=== PATIENT | female | born 1980 | race Caucasian/White ===

== ENCOUNTER 2018-09-15 12:05 | Emergency (ER) | payer OTHER ==
[~2018-09-15] VITALS: Ht 170.2 cm; Wt 83.9 kg
[2018-09-15 12:05] VITALS: BP_SYST 102
--- NOTE | 2018-09-15 12:40 | NUR ---
BROUGHT BACK TO BED #5 AND REPORT GIVEN TO BELEN
--- NOTE | 2018-09-15 12:57 | NUR ---
AMMY Burks at bedside examining patient.
[2018-09-15] MEDS: traMADol HCL HCL 50 MG TABLET (ULTRAM) PO ONE (13:16)
--- NOTE | 2018-09-15 13:16 | NUR ---
MEDICATED PATIENT WITH ULTRAM 100 MG TABLETS FOR LEFT LEG PAIN.
[2018-09-15 14:34] VITALS: BP_SYST 112
--- NOTE | 2018-09-15 14:35 | NUR ---
Patient given written and verbal discharge instructions and verbalizes understanding. ER MD discussed with patient the results and treatment provided. Patient in stable condition. ID arm band removed. Rx of TRAMADOL given. Patient educated on pain management and to follow up with PMD. Pain Scale 0/10. Opportunity for questions provided and answered. Medication side effect fact sheet provided.
== END 2018-09-15 14:35 | disposition home or self-care (01) ==
LOC: SED 12:05
DX: G89.28 Other chronic postprocedural pain (principal); M79.662 Pain in left lower leg
CPT/HCPCS: 73552; 73590-TC; 99283